=== PATIENT | male | born 1975 | race Caucasian/White ===

== ENCOUNTER 2025-05-04 09:48 | Outpatient (AMB) | payer OTHER, SELFPAY ==
--- NOTE | 2025-05-04 10:00 | A.OFFVIS_ITS ---
Vital Signs 05/04/25 10:19 Height 5 ft 7 in Weight 205 lb BMI 32.1 Handedness Right Intake Visit Reasons: WC DOI 04/24/25, closed fx of RT Tibial plateau Intake Note: Paul is a 49 year old male who presents today for a fracture care appointment for his right Tibial plateau fx, DOI 04/24/25. Patient reports he was removing a curb stone from the ground until when he pulled back he lost balance and the curb piece hit his knee. He states that he fell back and landed on his right elbow. Patient notices his pain is coming in his elbow and also his knee is in constant pain. Allergies NSAIDS (Non-Steroidal Anti-Inflamma Adverse Reaction (Verified 05/04/25 10:14) one kidney HPI HPI WC DOI 04/24/25, closed fx of RT Tibial plateau: Details: Mr. Partida is a 49-year-old male with a past medical history significant for nephrectomy and cardiac ablation for atrial fibrillation. He is not taking any blood thinners at this time. On 04/24/2025 the patient was at work when a large piece of [place] it hit the right lower extremity. After the injury, the patient was unable to stand and had immense pain in the right lower extremity. He presented to a local emergency room where x-rays and a CT scan were obtained and he was found to have a right tibial plateau fracture. He is placed in a long posterior splint and instructed to follow up with orthopedics outpatient for further evaluation and treatment. Additionally, the patient reports at today's visit that he is having right elbow pain. This was not evaluated in the emergency department as he was not complaining of pain at that time. COUNT INCLUDES THE [facility] Surgical History (Updated 05/04/25 @ 10:18 by Kenrick Stuart) History of nephrectomy History of cardiac ablation for atrial fibrillation Social History (Updated 05/04/25 @ 10:19 by Kenrick Stuart) Alcohol intake: never Patient Tobacco Use Status: Never used Tobacco Current occupational status: employed 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 construction Review of Systems Const All systems reviewed & are unremarkable except as noted in HPI and below Physical Exam Vital Signs: BMI result Body Mass Index 32.1 Const General: cooperative, healthy appearing and no acute distress Resp Effort & Inspection: normal respiratory effort and able to speak in complete sentences Extrem Other: Right lower extremity compartments are soft and compressible. Ecchymosis and hematoma noted over the anterior lateral aspect as well as the anterior medial aspect of the anterior tibia. Sensation is intact. Skin is intact with no abrasions or open wounds. Able to dorsiflex and plantar flex. Right elbow pain along the lateral epicondyle. Tenderness to palpation lateral epicondyle. 5/5 strength with resisted supination and pronation with pain at the lateral epicondyle. NVI. Assessment & Plan Assessment & Plan (1) Fracture of right tibial plateau: Code(s): S82.141A - Displaced bicondylar fracture of right tibia, initial encounter for closed fracture Category: Medical Plan Mr. Partida is a 49-year-old male with a past medical history significant for nephrectomy and cardiac ablation for atrial fibrillation. He is not taking any blood thinners at this time. On 04/24/2025 the patient was at work when a large piece of [place] it hit the right lower extremity. After the injury, the patient was unable to stand and had immense pain in the right lower extremity. He presented to a local emergency room where x-rays and a CT scan were obtained and he was found to have a right tibial plateau fracture. He is placed in a long posterior splint and instructed to follow up with orthopedics outpatient for further evaluation and treatment. Additionally, the patient reports at today's visit that he is having right elbow pain. This was not evaluated in the emergency department as he was not complaining of pain at that time. X-rays were obtained of the right elbow and negative for any acute fracture or dislocation. Recommendations would include gentle range of motion and ice. In regards to the right tibial plateau fracture, Dr. Arevalo and I discussed in detail the procedure and what to expect pre and post operatively. We discussed the risks, benefits and alternatives to the surgery as well as the rehabilitation course. The risks; which include, but are not limited to infection, bleeding, nerve injury, ongoing pain, swelling, and stiffness, perioperative risk of injury to bones and soft tissues, and blood clots. I?ve answered all questions and with their understanding they have consented to move forward with right distal tibia ORIF with Dr. Arevalo. While in the office today, I sent a refill of oxycodone 5 mg p.o. q.4-6 hours PRN pain for 7 days # 42 as well as methocarbamol 750 mg p.o. b.i.d. PRN pain # 14. Additionally, the patient has had to obtain multiple DME equipment to assist with ambulation. The equipment that they have obtained is a wheelchair, wheelchair attachment for leg lifts, a raised toilet seat and a power lift recliner. Prescriptions were provided to the patient for this DME equipment to be submitted to [facility] for reimbursement. X-rays of the right knee which were obtained while in the office today and were reviewed by me, Sonya Garcia PA-C, revealed depressed right tibial plateau fracture. CT scan right knee obtained on 04-24-25 revealed displaced right tibial plateau fracture. Orders: Orders XR elbow RT min 3V Today M25.529 - Pain in unspecified elbow Medications: New [Raise Toliet Seat] As directed 1 ea 0RF Rt tibial plateau fracture [Power Lift Recliner] As directed 1 ea 0RF Right tibial plateau fracture oxycodone Partial Fill upon patient request. 5 mg PO Q4-6H PRN 42 tabs 0RF pain 7 days [Wheel Chair] As directed 1 ea 0RF Right tibial plateau fracture [Wheel Chair Leg Lifts] As directed 1 ea 0RF methocarbamol 750 mg PO BID 14 tabs 0RF muscle spasm 7 days Coding Level of Care Code New Pt Level 4 (13005) Diagnoses Fracture of right tibial plateau S82.141A
--- OUTSIDE RECORDS SUMMARY | 2025-05-04 10:11 | XMS_ITS | Continuity of Care Document ---
Author Organization [facility] [address] [place] [address] Phone [phone] Care Team Providers Care Printing Machinist Name Role Phone Cricket Nevarez M.D. Care Team Information Rece iver [phone] Problems Active Problems Provider Date Hyperlipidemia Jonathan Perkins M.D. Onset: 0 12/03/2022 Atrial fibrillation Jonathan Perkins M.D. Onse t: 12/03/2022 Hyperthyroidism Jonathan Perkins M.D. Onset: 0 12/03/2022 Social History Type Date Description Comments Sex Male Sex Unknown ETOH Use Rarely consumes alcohol Tobacco Use Start: Unknown End: Unknown Patient is a former smoker Allergies and adverse reactions Active Allergies Criticality Reaction Severity Comments Date NSAIDS Unable to assess criticality 12/03/2022 Medications Description No Active Medications Vital Signs Date Vital Result Comment 12/03/2022 2:50pm BP Systolic 118 mmHg BP Diastolic 76 mmHg Heart Rate 72 /min Height 67 inches 5'7 Weight 210.00 lb BMI (Body Mass Index) 32.9 kg/m2 Results Test Acquired Date Facility Test Result H/L Range N ote TSH With Reflex To FT4 08/28/2023 [facility] TSH With Reflex To FT4 Duplicate Order TSH With Reflex To FT4 12/05/2022 [facility] TSH With Reflex To FT4 <pending> TSH 12/03/2022 [facility] TSH 3.84 uIU/mL (0.4-4.2) Free T4 12/03/2022 [facility] Free T4 0.99 ng/dL (0.70-1.80 ) Free T3 12/03/2022 [facility] Free T3 3.4 pg/mL (2.3-5.0) Medical Devices Description No Information Available Encounters Type Date Location Provider Dx Diagnosis Office Visit 12/03/2022 2:45p Main Office Jonathan Perkins M.D. E05.90 Thyrotoxicosis, unsp without thyrotoxic crisis or storm Assessments Date Code Description Provider 12/05/2022 E05.90 Thyrotoxicosis, unspecified without thyrotoxic crisis or storm Jonathan Perkins M.D. 12/03/2022 E05.90 Thyrotoxicosis, unspecified without thyrotoxic crisis or storm Jonathan Perknis M.D. Plan of Treatment 12/03/2022 - Jonathan Perkins M.D.* E05.90 Thyrotoxicosis, unspecified without thyrotoxic crisis or storm * Functional Status Description No Information Available Mental Status Description No Information Available Referrals Description No Information Available
[2025-05-04 10:19] VITALS: BMI 32.1
== END 2025-05-04 11:41 | disposition home or self-care (01) ==
PROVIDERS: PCP Internal Medicine; Visit Provider Physician Assistant
DX: S82.141A Displaced bicondylar fracture of right tibia, initial encounter for closed fracture (principal)
CPT/HCPCS: 99204

== ENCOUNTER → 2025-05-04 09:49 | Outpatient (BNV) | payer OTHER, SELFPAY | PROVIDERS: Visit Provider Radiology Diagnostic Radiology | DX: M25.521 Pain in right elbow (principal); S82.141A Displaced bicondylar fracture of right tibia, initial encounter for closed fracture; M25.061 Hemarthrosis, right knee | CPT/HCPCS: 73080; 73560 ==

== ENCOUNTER 2025-05-04 10:50 | Outpatient (REF) | payer OTHER, SELFPAY ==
--- NOTE | ~2025-05-04 | XR_ITS ---
EXAMINATION: XR ELBOW, RIGHT CLINICAL INFORMATION: M25.529 - Pain in unspecified elbow COMPARISON: None available. TECHNIQUE: AP, lateral, and oblique views of the right elbow. FINDINGS: There is no joint effusion. No degenerative changes are present. No fracture line is evident. XR/XR elbow RT min 3V IMPRESSION: Unremarkable right elbow. Electronically signed by: Greg Sheppard MD 05/04/2025 11:59 AM EDT
--- NOTE | ~2025-05-04 | XR_ITS ---
EXAMINATION: XR KNEE, RIGHT CLINICAL INFORMATION: M25.569 - Pain in unspecified knee COMPARISON: None available. TECHNIQUE: AP and lateral views of the right knee. FINDINGS: There is a vertically oriented fracture line in the lateral tibial plateau that extends to the articular surface near the base of the tibial spines and extends down to the metaphysis. There is lipohemarthrosis. No other abnormalities are evident. XR/XR knee RT 2V IMPRESSION: Acute intra-articular lateral tibial plateau fracture with minimal gap at the articular surface. Lipohemarthrosis. Electronically signed by: Greg Sheppard MD 05/04/2025 10:23 AM EDT
== END 2025-05-04 10:51 | disposition home or self-care (01) ==
LOC: HO.HOSX 10:50
PROVIDERS: Visit Provider Physician Assistant
DX: S82.141A Displaced bicondylar fracture of right tibia, initial encounter for closed fracture (principal); M25.521 Pain in right elbow; W18.30XA Fall on same level, unspecified, initial encounter; Z79.899 Other long term (current) drug therapy
CPT/HCPCS: 73080; 73560; 99202

== ENCOUNTER 2025-05-10 12:37 | Day surgery (SDC) | payer OTHER, SELFPAY ==
[2025-05-09 11:38] VITALS: BMI 32.1
--- NOTE | 2025-05-09 11:48 | HO.ANESPROP2 ---
Documented by User: Sheba Stoddard NP 05/09/25 15:38 HPI - Anesthesia Eval Consult details Narrative: 49 yr old male for right tibia ORIF AARTI: on CPAP H/O nephrectomy (kidney donor), creat 1.49, normal electrolytes, normal CBC on labs 10/2024 H/O cardiac ablation for afib, no longer seeing cards per PCP note PMFSH Active Problems Active Problems: All Active Problems Fracture of right tibial plateau (Acute) Past Medical History Medical History SVT (supraventricular tachycardia) Back pain AARTI on CPAP Surgical History Surgical History History of surgery Status post LASIK surgery of both eyes History of nephrectomy (10/04/15) History of cardiac ablation for atrial fibrillation Social History Social History Household Members: Family Housing: House Are you a primary animal daycare provider to a significant other at home: No Do you presently have visiting nurse or other home services: No Alcohol intake: never Patient Tobacco Use Status: Never used Tobacco Use of substances other than those prescribed or required for medical reasons: No Are you DNR?: No Advance Directives: No Advance Directives Information Provided: Yes Advance Directives on File: No Poor oral hygiene: No Current occupational status: employed 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 [employer] Meds Allergies Allergy/AdvReac Type Severity Reaction Status Date / Time NSAIDS (Non-Steroidal AdvReac one kidney Verified 05/04/25 10:14 Anti-Inflamma Home Medications ?Medication ?Instructions ?Recorded ?Confirmed ?Last Taken ?Type acetaminophen 500 mg capsule 1,000 mg PO Q6H PRN Pain 05/04/25 05/09/25 Unknown History oxycodone 5 mg capsule 5 mg PO QID PRN Pain 05/04/25 05/09/25 05/10/25 09:30 History Exam Height,Weight and Vital Signs: Height 5 ft 7 in Weight 92.986 kg Narrative Narrative: EKG 10/2024 NSR, rate 65, no ST-T wave changes Documented by User: Madelin Mathis MD 05/10/25 14:05 PMFSH Past Medical History Medical History SVT (supraventricular tachycardia) Back pain AARTI on CPAP Surgical History Surgical History History of surgery Status post LASIK surgery of both eyes History of nephrectomy (10/04/15) History of cardiac ablation for atrial fibrillation History of Problems with Anesthesia: No Social History Social History Household Members: Family Housing: House Are you a primary animal daycare provider to a significant other at home: No Do you presently have visiting nurse or other home services: No Alcohol intake: never Patient Tobacco Use Status: Never used Tobacco Use of substances other than those prescribed or required for medical reasons: No Are you DNR?: No Advance Directives: No Advance Directives Information Provided: Yes Advance Directives on File: No Poor oral hygiene: No Current occupational status: employed 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 construction Meds Allergies Allergy/AdvReac Type Severity Reaction Status Date / Time NSAIDS (Non-Steroidal AdvReac one kidney Verified 05/04/25 10:14 Anti-Inflamma Home Medications ?Medication ?Instructions ?Recorded ?Confirmed ?Last Taken ?Type acetaminophen 500 mg capsule 1,000 mg PO Q6H PRN Pain 05/04/25 05/09/25 Unknown History oxycodone 5 mg capsule 5 mg PO QID PRN Pain 05/04/25 05/09/25 05/10/25 09:30 History Exam Airway Mallampati Class: III TM Dist: >3cm Neck ROM: Full Loose/Missing/Broken Teeth: No Heart: RRR Lungs: CTA Assessment and Plan Assessment Anesthesia Assessment: Anesthesia Plan Discussed and Chart Reviewed Final Anesthetic Review History of Problems with Anesthesia: No NPO: Yes ASA Class: III Final Preanesthetic Review: Meds/Allgs Chart Reviewed, Consent Obtained/Reviewed and Anes Risks/Benef Reviewed Patient Risk: Intermediate Procedure Risk: Low Anesthetic Plan Anesthetic Plan: GA Disposition: Standard PACU
[2025-05-10] VITALS (11 sets, daily range): BP systolic 113–138; BP diastolic 74–89; PULSE 74–99; RESP 16–24; TEMP 36.2–36.9; O2SAT 94–97; BMI 32.7
--- NOTE | ~2025-05-10 | FL_ITS ---
EXAMINATION: FL GUIDANCE ONLY HISTORY: right tibia fracture COMPARISON: Correlation is made with plain films of the right knee dated 05/04/2025. TECHNIQUE: Fluoroscopy time: 1.3 minutes. Cumulative Dose: 6.65 mGy. DAP: 0.115 mGym2 Images: 2. FINDINGS: AP and lateral fluoroscopic spot films of the right knee demonstrate internal fixation of the previously seen fracture of the lateral tibial plateau with a sideplate and multiple orthopedic screws. FL/FL guidance in OR IMPRESSION: Fluoroscopy during procedure. Please see procedure report for additional information. Electronically signed by: Jairo Kaplan MD 05/11/2025 07:02 AM EDT
--- NOTE | 2025-05-10 13:12 | MHC.SHP ---
Pre-Procedural Eval Section A - 24 Hr Update-Section A only Date of Service: 05/10/25 The patient is an INPATIENT: No Changes since office visit: No Cold of Flu in the past 2 weeks, No New Medical Problems, No Changes in Medication and No Patient answered all questions The patient has been examined within 24 hours of the surgical procedure. The History & Physical has been completed within 30 days and I have reviewed it.: Yes Section B - Complete if H&P > 30 days Chief Complaint: Displaced fracture of lateral condyle of right Allergies: Allergies Allergy/AdvReac Type Severity Reaction Status Date / Time NSAIDS (Non-Steroidal AdvReac one kidney Verified 05/04/25 10:14 Anti-Inflamma Plan I have reviewed the history and physical and performed a pertinent physical examination on my patient. No changes have occurred unless specified. Time Spent With Patient Time: Total time managing care of this patient today ____ minutes.
[2025-05-10] MEDS: Lactated Ringers 1,000 ML 100 ML IVCONT ×3 (13:58→18:18)
--- NOTE | 2025-05-10 16:38 | PM.OP ---
Brief Operative Note Date of Service: 05/10/25 Pre-op diagnosis: right tibial plateau fracture Post-op diagnosis: same Procedure: ORIF right tibial plateau fracture Implants: Sandee Pangea 3 hole lateral tibial plateau locking plate Surgeon: Gerard Arevalo MD Anesthesia: GETA and regional Was an Level Designer used for this Procedure?: Yes Level Designer: Sonya Garcia Estimated blood loss (mL): 150 IV fluids (mL): 1,500 Pathology: none sent Condition: stable Disposition: PACU
[2025-05-10] MEDS: 0.9 % Sodium Chloride Flush 3 ML SYRINGE IVFLUSH ×2 (18:18→23:50)
--- NOTE | 2025-05-10 19:15 | HO.PM.IMCN ---
History of Present Illness Data of Consult Service Date: 05/10/25 Requesting physician: Gerard Arevalo Primary Care Provider: Cricket Nevarez DO, MD HPI Reason for consult: Medical management Patient is a 49-year-old male with past medical history AARTI on CPAP, SVT, AFib resolved after ablation (2009) currently not on anticoagulation or medications, LASIK surgery both eyes, left nephrectomy for kidney donation - 2014 (creatinine baseline runs 1.2-1.4 - patient does not currently follow with a gas examiner), recent work-related injury involving displaced closed fracture of the tibia is being seen status post surgical repair for consultation for medical management. Patient currently reporting pain in right lower extremity. Nursing at bedside and Orthopedics will be checking in at 20:00 to evaluate patient's status. Patient denies any other medical concerns at this time. Patient takes methocarbamol only as needed has a muscle relaxer. Patient currently denies any chest pain, shortness of breath at rest, abdominal pain, nausea or vomiting. Patient is not reporting any headaches or visual changes. Right lower extremity immobilized and elevated. Right foot is warm with palpable pulses and cap refill is less than 2 seconds. Review of Systems Review of Systems: Patient currently denies any chest pain, shortness of breath at rest, abdominal pain, nausea or vomiting. Patient denies any issues with memory status post anesthesia. Patient is not having any headaches or visual changes. Patient is reporting pain in the right lower extremity status post surgical repair of right tibia fracture. Yes all other systems are reviewed and are negative [facility] Medical History Afib SVT (supraventricular tachycardia) Back pain AARTI on CPAP Cognitive capacity: Alert and orientated x3 Functional capacity: independent ambulation (Prior to surgery) Surgical History History of surgery Status post LASIK surgery of both eyes History of nephrectomy (10/04/15) History of cardiac ablation for atrial fibrillation Social History Household Members: Spouse Housing: House Are you a primary intensive care unit nurse to a significant other at home: No Do you presently have visiting nurse or other home services: No Alcohol intake: never Patient Tobacco Use Status: Never used Tobacco Use of substances other than those prescribed or required for medical reasons: No Have you been hit, kicked, punched, or otherwise hurt by someone within the past year? If so, by whom?: No Do you feel safe in your current relationship?: No Is there a partner from a previous relationship who is making you feel unsafe now?: No Are you made to feel afraid or neglected: No Are you DNR?: No Advance Directives: No Advance Directives Information Provided: Yes Advance Directives on File: No Do you have a plan to hurt others: No Plan Recently lost weight without trying: No Eating poorly because of decreased appetite: No Nutrition Risks: No Nutritional Risk Poor oral hygiene: No Current occupational status: employed 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 construction Ebola Risk: Travel/Contact With Anyone From Affected Area/s: No Has Patient Experienced Ebola Symptoms: No Meds Allergies Allergy/AdvReac Type Severity Reaction Status Date / Time NSAIDS (Non-Steroidal AdvReac one kidney Verified 05/04/25 10:14 Anti-Inflamma Active Medications: Current Medications Acetaminophen (Acetaminophen 325 Mg Tablet) 650 mg PO Q6H PRN PRN Reason: Pain, Mild 1-3,fever,headache Aspirin (Aspirin 325 Mg Tablet) 325 mg PO BID JOHNATHAN Calcium Carbonate (Calcium Carbonate 750 Mg Tab.Chew) 750 mg PO Q4H PRN PRN Reason: Heartburn Celecoxib (Celecoxib 200 Mg Capsule) 200 mg PO BID JOHNATHAN Docusate Sodium (Docusate Sodium 100 Mg Capsule) 100 mg PO BID COUNTS INCLUDE 234 BEDS AT THE [facility] Hydromorphone HCl (Hydromorphone Hcl 0.5 Mg/0.5 Ml Syringe) 0.5 mg IVPUSH Q4H PRN; Protocol PRN Reason: Pain, Severe (Pain Scale 7-10) Last Admin: 05/10/25 18:32 Dose: 0.5 mg Lactated Ringer's (Lr) 1,000 mls @ 100 mls/hr IVCONT .Q10H COUNTS INCLUDE 234 BEDS AT THE [facility] Last Admin: 05/10/25 18:18 Dose: 100 mls/hr Cefazolin Sodium/Dextrose (Ancef) 2 gm in 50 mls @ 100 mls/hr IV POSTOP@2000 COUNTS INCLUDE 234 BEDS AT THE [facility] Stop: 05/10/25 20:29 Magnesium Hydroxide (Milk Of Magnesia 30 Ml Oral.Susp) 30 ml PO DAILY PRN PRN Reason: Constipation Melatonin (Melatonin 3 Mg Tablet) 6 mg PO BEDTIME PRN PRN Reason: Insomnia Methocarbamol (Methocarbamol 750 Mg Tablet) 750 mg PO BID COUNTS INCLUDE 234 BEDS AT THE [facility] Ondansetron HCl (Ondansetron Hcl 4 Mg/2 Ml Vial) 4 mg IVPUSH Q8H PRN PRN Reason: Nausea and Vomiting Oxycodone HCl (Oxycodone Hcl Immed Release 5 Mg Tablet) 5 mg PO Q4H PRN PRN Reason: Pain, Moderate(Pain Scale 4-6) Oxycodone HCl (Oxycodone Hcl Er 10 Mg Tab.Er.12h) 10 mg PO BID COUNTS INCLUDE 234 BEDS AT THE [facility] Sodium Chloride (0.9 % Sodium Chloride Flush 3 Ml Syringe) 3 ml IVFLUSH QSHIFT COUNTS INCLUDE 234 BEDS AT THE [facility] Last Admin: 05/10/25 18:18 Dose: 3 ml Home Medications ?Medication ?Instructions ?Recorded ?Confirmed ?Last Taken ?Type acetaminophen 500 mg capsule 1,000 mg PO Q6H PRN Pain 05/04/25 05/09/25 Unknown History oxycodone 5 mg capsule 5 mg PO QID PRN Pain 05/04/25 05/09/25 05/10/25 09:30 History Physical Exam Vital Signs and Narrative: Vital Signs: Last Vital Signs Temp 97.2 F 05/10/25 17:34 Pulse 97 05/10/25 17:34 Resp 20 05/10/25 17:34 BP 136/87 05/10/25 17:34 Pulse Ox 94 05/10/25 17:34 O2 Del Method Nasal Cannula 05/10/25 17:34 O2 Flow Rate 2 05/10/25 17:34 BMI result Body Mass Index 32.7 Alert and orientated X3, able to give good history. Spouse also present and helped with providing history as patient is experiencing pain status post surgery. Neuro: CN II-X11 intact, no deficits, visual acuity intact EYES: PERRLA, EOM intact, sclerae nonicteric ENT: hearing intact, no issues with swallowing, uvula midline, lips moist, nares patent no epistaxis Cardiac: S1 S2 RRR, no murmur, no JVD, no edema in Lower ext Pulmonary: lungs clear to auscultation B Abdominal: BS active in all 4 quadrants, no guarding, tenderness, rebounding MSK: strength 5/5 upper and L lower extremities, unable to assess strength in the right lower extremity : no CVA tenderness no bladder distension Extremities: no edema in lower extremities, PT and DP pulses palpable +2, right foot warm to the touch pulses palpable cap refill less than 2 seconds Psych: mood anxious secondary to pain, judgement and insight good Skin: Surgical incision right leg covered with the immobilizer, dry and intact Assessment and Plan (1) Fracture of right tibial plateau: Qualifiers: Encounter type: initial encounter Fracture type: closed Qualified Code(s): S82.141A - Displaced bicondylar fracture of right tibia, initial encounter for closed fracture Status: Acute Plan Patient is a 49-year-old male with past medical history AARTI on CPAP, SVT, AFib resolved after ablation (2009) currently not on anticoagulation or medications, LASIK surgery both eyes, left nephrectomy for kidney donation - 2014 (creatinine baseline runs 1.2-1.4 - patient does not currently follow with a gas examiner), recent work-related injury involving displaced closed fracture of the tibia is being seen status post surgical repair for consultation for medical management. Status post right femur repair Plan and pain management per Orthopedics Discharge plan per Orthopedics as well AARTI on CPAP CPAP ordered for HS History of AFib resolved after ablation 2009/ remote history SVT No EKG found in patient's chart currently Recommend EKG prior to discharge to ensure rhythm is stable Apical pulse regular, no murmur on exam History of left nephrectomy for kidney donation 2014 Per patient's spouse patient's creatinine runs 1.2-1.4 Recommend a.m. labs to ensure renal function and electrolytes are stable status post surgery Monitor I's and O's Avoid nephrotoxic meds Patient states he does not currently follow with a gas examiner DVT prophylaxis: Per Orthopedics Hospitalist group will sign off at this time as patient has no current acute medical issues. We appreciate this consultation and please reach out if you have any questions or concerns regarding this patient's medical care.
[2025-05-10] MEDS: oxyCODONE HCl ER 10 MG TAB.ER.12H PO (20:08)
[2025-05-10] MEDS: oxyCODONE HCl Immed Release 5 MG TABLET PO (20:09)
[2025-05-11] VITALS (10 sets, daily range): BP systolic 114–129; BP diastolic 62–76; PULSE 69–85; RESP 16–18; TEMP 36.2–36.9; O2SAT 93–95
[2025-05-11] MEDS: oxyCODONE HCl Immed Release 5 MG TABLET PO ×5 (02:11→22:05)
[2025-05-11] MEDS: Lactated Ringers 1,000 ML 100 ML IVCONT ×2 (03:47→20:06)
[2025-05-11 06:33] LABS: MANUAL DIFF FLAG NO
[2025-05-11 06:36] LABS: Hematocrit 37.3 % (42.0-52.0); Hemoglobin 13.0 g/dl (14.0-18.0); Imm Gran Abs Auto 0.03 X10*3/uL (0.00-0.03); Imm Gran Pct Auto 0.3 % (0.0-0.4); Lymphocytes Absolute Auto 1.2 X10*3/uL (1.2-4.9); Mean Corpuscular HGB Conc 34.9 g/dl (31.0-36.0); Mean Corpuscular Hemoglobin 31.0 pg (27.0-33.0); Mean Corpuscular Volume 89.0 fL (80.0-98.0); NRBC Abs Auto 0.000 X10*3/uL (0.0-0.012); NRBC Pct Auto 0.0 /100WBC (0.0-0.2); Platelet Count 247 X10*3/uL (160-400); Red Blood Count 4.19 X10*6/uL (4.60-5.80); White Blood Count 11.5 X10*3/uL (4.8-10.8)
[2025-05-11 06:49] LABS: Anion Gap 15 (12-20); Blood Urea Nitrogen 22 mg/dL (9-16); Calcium 8.7 mg/dL (8.4-10.2); Carbon Dioxide 21 mmol/L (22-29); Chloride 107 mmol/L (96-108); Creatinine Clr Calc Pharmacy 78.6; Estimated Glomerular Filt Rate > 60; Potassium 4.7 mmol/L (3.3-5.1); Sodium 138 mmol/L (135-145)
[2025-05-11] MEDS: oxyCODONE HCl ER 10 MG TAB.ER.12H PO ×2 (07:28→20:05)
--- NOTE | 2025-05-11 08:41 | HO.POSTANES ---
Post Anesthesia Evaluation Post Anesthesia Evaluation Date of Service: 05/11/25 Vital Signs: Vital Signs Temp Pulse Resp BP Pulse Ox O2 Del Method O2 Flow Rate 05/11/25 08:00 97.7 F 74 18 129/74 94 Nasal Cannula 1 05/11/25 03:49 97.2 F 80 18 126/72 93 Nasal Cannula 1 05/11/25 03:11 16 05/11/25 02:35 16 05/11/25 00:53 18 05/11/25 00:18 16 05/10/25 23:49 97.5 F 86 18 130/79 94 Nasal Cannula 2 05/10/25 21:09 16 Anesthesia: General Mental Status: Awake Pain Control: Satisfactory Nausea/Vomiting: None Hydration: Adequate Anesthesia-Related Issues: No Anes. Related Issues
--- NOTE | 2025-05-11 11:43 | PM.PNORT ---
Subjective Subjective Date of Service: 05/11/25 Interval history: Postop day 1 status post right tibial plateau ORIF Patient resting in bed this morning Right lower extremity elevated on 2 pillows Pain fairly well managed, improved dramatically from yesterday Patient report pain is currently at a 5 to 6/10, improved from 07/28 yesterday No other acute events overnight No other acute complaints or concerns at this time Physical Exam Vital Signs: Vital Signs: Last Vital Signs Temp 97.7 F 05/11/25 08:00 Pulse 74 05/11/25 08:00 Resp 18 05/11/25 08:00 BP 129/74 05/11/25 08:00 Pulse Ox 94 05/11/25 08:00 O2 Del Method Nasal Cannula 05/11/25 08:00 O2 Flow Rate 1 05/11/25 08:00 BMI result Body Mass Index 32.7 Extrem: Other: Dressing on right knee clean, dry, intact ACL brace in place No evidence of surrounding erythema, ecchymosis No evidence of infection Patient is able to flex and extend the digits of the left foot without difficulty Compartments soft, nontender Distal sensation intact Capillary refill brisk Procedures Date of Service Date of Service: 05/11/25 Progress Note: A&P Assessment and plan (1) Fracture of right tibial plateau: Status: Acute Plan 1. Status post right tibial plateau ORIF DOS 05/10/2025 Continue pain management Continue with strict elevation of the right lower extremity Continue aspirin for DVT prophylaxis PT eval pending Dispo planning-PT eval, pain management, clearance Time Spent With Patient Time: Total time managing care of this patient today ____ minutes. Quality Stroke Does the patient have a stroke diagnosis?: No VTE Prior VTE?: No VTE Risk Level:: Surgical - high VTE Device Contraindication: N/A - Device Ordered VTE Drug Contraindication: N/A - Med Ordered
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
[2025-05-12] MEDS: oxyCODONE HCl Immed Release 5 MG TABLET PO ×3 (02:18→07:11)
[2025-05-12 03:28] VITALS: BP 137/87; PULSE 76; RESP 20; TEMP 36.9; O2SAT 95
[2025-05-12] MEDS: Lactated Ringers 1,000 ML 100 ML IVCONT (03:40)
--- NOTE | 2025-05-12 03:42 | MHC.PIE ---
p; pt c/o pain 04/27, note; prn oxy 5 mg q4 given at 0218 with no change in pain. pt requesting prn tylenol and extra oxy for pain. note; prn tylenol on hold at this time. note; pt refusing iv dilaudid for pain for pt ? dc this morning. i; dr guerra notified. ok to give early dose oxy e; early dose oxy 5 mg given, ice pack given. will cont to monitor
[2025-05-12 06:26] LABS: MANUAL DIFF FLAG NO
[2025-05-12 06:32] LABS: Hematocrit 32.9 % (42.0-52.0); Hemoglobin 11.2 g/dl (14.0-18.0); Imm Gran Abs Auto 0.03 X10*3/uL (0.00-0.03); Imm Gran Pct Auto 0.3 % (0.0-0.4); Lymphocytes Absolute Auto 2.8 X10*3/uL (1.2-4.9); Mean Corpuscular HGB Conc 34.0 g/dl (31.0-36.0); Mean Corpuscular Hemoglobin 30.7 pg (27.0-33.0); Mean Corpuscular Volume 90.1 fL (80.0-98.0); NRBC Abs Auto 0.000 X10*3/uL (0.0-0.012); NRBC Pct Auto 0.0 /100WBC (0.0-0.2); Platelet Count 192 X10*3/uL (160-400); Red Blood Count 3.65 X10*6/uL (4.60-5.80); White Blood Count 9.0 X10*3/uL (4.8-10.8)
[2025-05-12 06:49] LABS: Anion Gap 10 (12-20); Blood Urea Nitrogen 21 mg/dL (9-16); Calcium 8.1 mg/dL (8.4-10.2); Carbon Dioxide 25 mmol/L (22-29); Chloride 110 mmol/L (96-108); Creatinine Clr Calc Pharmacy 83.3; Estimated Glomerular Filt Rate > 60; Potassium 3.9 mmol/L (3.3-5.1); Sodium 141 mmol/L (135-145)
[2025-05-12] MEDS: oxyCODONE HCl ER 10 MG TAB.ER.12H PO (07:14)
[2025-05-12] MEDS: oxyCODONE HCl Immed Release 5 MG TABLET 10 MG PO ×3 (07:20→14:44)
[2025-05-12 08:00] VITALS: BP 139/82; PULSE 75; RESP 18; TEMP 36.3; O2SAT 18
--- NOTE | 2025-05-12 08:27 | PM.PNORT ---
Subjective Subjective Date of Service: 05/12/25 Interval history: Postop day 1 status post right tibial plateau ORIF Patient resting in bed this morning Right lower extremity elevated on 2 pillows Pain control overnight was poor, med adjustments made but patient continued to have difficulty with pain management. - Patient was trying to wean off of IV medication Patient report pain is currently 6-7/10 No other acute complaints or concerns at this time Physical Exam Vital Signs: Vital Signs: Last Vital Signs Temp 97.3 F 05/12/25 08:00 Pulse 75 05/12/25 08:00 Resp 18 05/12/25 08:00 BP 139/82 05/12/25 08:00 Pulse Ox 18 L 05/12/25 08:00 O2 Del Method Room Air 05/12/25 08:00 O2 Flow Rate 1 05/11/25 08:00 BMI result Body Mass Index 32.7 Extrem: Other: RLE: Incision site is c/d/i. Able to dorsi/plantar flex. Compartments soft and compressible. Sensation reportedly intact. Pedal pulse intact. Brace in place appropriately placed. Procedures Date of Service Date of Service: 05/12/25 Progress Note: A&P Assessment and plan (1) Fracture of right tibial plateau: Status: Acute Plan Continue pain mgmnt Begin ASA for dvt ppx begin PT for right tibal plateau fx - NWB RLE Dispo planning- PT, pain mgmnt, NWB RLE Time Spent With Patient Time: Total time managing care of this patient today ____ minutes. Quality Stroke Does the patient have a stroke diagnosis?: No VTE Prior VTE?: No VTE Risk Level:: Surgical - high VTE Device Contraindication: N/A - Device Ordered VTE Drug Contraindication: N/A - Med Ordered
--- NOTE | 2025-05-12 11:17 | MHC.CM.PN ---
Addendum entered by Mary Ann Albert RN 05/12/25 12:54: Per RN, rx walker was sent to [facility] by ortho. Addendum entered by Mary Ann Albert RN 05/12/25 12:49: Patient medically cleared for dc home self care. Per andrea PA, home PT not indicated at this time. Discussed w/ patient who verbalized understanding. Script for walker will be provided on dc. will obtain walker. Workmans comp aware of dc. Original Note: Patient not medically cleared for dc at this time d/t uncontrolled pain. CM will continue to follow.
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
[2025-05-12 12:00] VITALS: BP 131/75; PULSE 77; RESP 17; TEMP 36.6; O2SAT 94
--- NOTE | 2025-05-12 12:33 | PM.DS ---
DS: Providers Provider Date of Service: 05/12/25 Date of discharge: 05/12/25 Primary care physician: Cricket Nevarez DO, MD Consults: 05/10/25 17:19 Consult to Hospitalist Routine Comment: Consulting Provider: [facility] Hospitalists Reason For Exam: Routine medical management DS: Diagnosis Discharge Diagnosis (1) Fracture of right tibial plateau: Status: Acute DS: Summary Hospital Course Hospital Course: The patient underwent a successful right tibial plateau ORIF, they were transferred to PACU and then to the floor to recover. During their stay, their vitals were stable, afebrile at 97.8. Labs were unremarkable, H/H 11.2/32.9. POD 1 they were started on Aspirin 325mg po bid for DVT ppx, they also received Physical Therapy services. Prior to discharge, their dressing was clean dry and intact, the brace was possitioned appropriately and the plan was to be discharged home with out patient followup. Time Attestation Discharge Coordination Time (in mins): 30 Quality: Safe Use of Opioids Does Pt have an Active Cancer Diagnosis on the Problem List?: No Quality: Stroke Does the patient have a stroke diagnosis?: No Physical Exam Vital Signs: Vital Signs: Last Vital Signs Temp 97.8 F 05/12/25 12:00 Pulse 77 05/12/25 12:00 Resp 17 05/12/25 12:00 BP 131/75 05/12/25 12:00 Pulse Ox 94 05/12/25 12:00 O2 Del Method Room Air 05/12/25 12:00 O2 Flow Rate 1 05/11/25 08:00 BMI result Body Mass Index 32.7 Extrem: Other: RLE: Incision site is c/d/i. Able to dorsi/plantar flex. Compartments soft and compressible. Sensation reportedly intact. Pedal pulse intact. Brace in place appropriately placed. DS: Data Data Completed and Pending Labs on day of discharge: Laboratory Results - last 24 hr 05/12/25 05:31 WBC 9.0 RBC 3.65 L Hgb 11.2 L Hct 32.9 L MCV 90.1 MCH 30.7 MCHC 34.0 RDW 12.2 Plt Count 192 MPV 10.1 Immature Gran % (Auto) 0.3 Neut % (Auto) 57.4 Lymph % (Auto) 31.4 Tama % (Auto) 9.6 Eos % (Auto) 0.9 Baso % (Auto) 0.4 Lymph # (Auto) 2.8 [place]ama # (Auto) 0.9 Eos # (Auto) 0.1 Baso # (Auto) 0.0 Abs Immat Gran (auto) 0.03 Absolute Neuts (auto) 5.1 Absolute Nucleated RBC 0.000 Nucleated RBC % (auto) 0.0 Sodium 141 Potassium 3.9 Chloride 110 H Carbon Dioxide 25 Anion Gap 10 L BUN 21 H Creatinine 1.15 Estim Creat Clear Calc 83.3 Estimated GFR > 60 Fasting Glucose 93 Calcium 8.1 L D Discharge Plan Discharge Patient Disposition: Home, Self-Care Referrals: Sonya Garcia PA-C [Physician Meter Attendant, Orthopedics] - 05/18/25 10:45 am Discharge Medications: New acetaminophen 325 mg Tablet 650 mg PO Q6H PRN (Reason: Pain, Mild 1-3,Fever,Headache) 30 Days Qty: 240 0RF aspirin 325 mg Tablet 325 mg PO BID 42 Days Qty: 84 0RF oxycodone [OxyContin] 10 mg Tablet,Oral Only,Ext.Rel.12 Hr 10 mg PO BID 4 Days Qty: 8 0RF Rx Instructions: Partial Fill upon patient request. oxycodone 10 mg tablet 10 mg PO Q4H PRN (Reason: Pain, Moderate/Severe (4-10)) 7 Days Qty: 42 0RF Rx Instructions: Partial Fill upon patient request. docusate sodium 100 mg Capsule 100 mg PO BID 30 Days Qty: 60 0RF Continued (DME) walker Misc See Rx Instructions .ROUTE .MEDSUPPLY Qty: 1 0RF Rx Instructions: Folding front wheeled walker (DME) Power Lift Recliner See Rx Instructions .ROUTE .MEDSUPPLY Qty: 1 0RF Rx Instructions: As directed (DME) Raise Toliet Seat See Rx Instructions .ROUTE .MEDSUPPLY Qty: 1 0RF Rx Instructions: As directed (DME) Wheel Chair See Rx Instructions .ROUTE .MEDSUPPLY Qty: 1 0RF Rx Instructions: As directed (DME) Wheel Chair Leg Lifts See Rx Instructions .ROUTE .MEDSUPPLY Qty: 1 0RF Rx Instructions: As directed methocarbamol 750 mg tablet 750 mg PO BID 7 Days Qty: 14 0RF Discontinued oxycodone 5 mg capsule 5 mg PO QID PRN (Reason: Pain) acetaminophen 500 mg capsule 1,000 mg PO Q6H PRN (Reason: Pain) Discharge Orders: Discharge Order (Routine); Ordered 05/12/25 Ordered By: Sonya Garcia Diet: Advance to usual diet Activity on Discharge: Use cane or walker Activity Restrictions/Additional Instructions: NWB RLW Walker to assist with ambulation Elevation on three pillows above heart level Ice 20mins on and 20mins off - Make sure you have a barrier between ice pack and skin Oxycodone 10/325mg 1 tablet by mouth every 4-6 hours as needed for pain Oxycontin 10mg 1 tablet by mouth every 12 hours Print Language: Divehi
--- NOTE | 2025-05-12 13:47 | PC.NURSE ---
patient reported poor pain control overnight, additional dose of oxycodone given and dose increased to 10mg with better effect, patient to be discharged home with script for long acting oxycontin as well as increased dose of oxycodone
== END 2025-05-12 15:03 | disposition home or self-care (01) ==
LOC: HO.SSS 12:38 → HO.S3 17:28 → HO.SSS 05-11 09:39 → HO.S3 05-11 09:49
PROVIDERS: Physician Assistant; PCP Internal Medicine; Visit Provider Orthopaedic Surgery
PROC: (CPT 27535; principal; 2025-05-10 15:40)
DX: S82.141A Displaced bicondylar fracture of right tibia, initial encounter for closed fracture (principal); M25.561 Pain in right knee; M25.521 Pain in right elbow; W20.8XXA Other cause of strike by thrown, projected or falling object, initial encounter; Y93.89 Activity, other specified; Y92.69 Other specified industrial and construction area as the place of occurrence of the external cause; Y99.0 Civilian activity done for income or pay; I48.91 Unspecified atrial fibrillation; I47.10 Supraventricular tachycardia, unspecified; Z52.4 Kidney donor; G47.33 Obstructive sleep apnea (adult) (pediatric); Z99.89 Dependence on other enabling machines and devices; Z88.6 Allergy status to analgesic agent; Z98.890 Other specified postprocedural states
CPT/HCPCS: 27535; 36415; 80048; 85025; 97116; 97162; C1713; J0131; J0690; J1100; J1171; J2003; J2250; J2405; J2704; J2795; J3010; J7120

== ENCOUNTER → 2025-05-10 12:37 | Outpatient (BNV) | payer OTHER, SELFPAY | PROVIDERS: PCP Internal Medicine; Visit Provider Orthopaedic Surgery | DX: S82.141A Displaced bicondylar fracture of right tibia, initial encounter for closed fracture (principal) | CPT/HCPCS: 27535 ==

== ENCOUNTER → 2025-05-10 12:37 | Outpatient (BNV) | payer OTHER, SELFPAY | PROVIDERS: PCP Internal Medicine; Visit Provider Nurse Practitioner Family | DX: S82.141A Displaced bicondylar fracture of right tibia, initial encounter for closed fracture (principal) | CPT/HCPCS: 99223 ==

== ENCOUNTER 2025-05-18 08:13 | Outpatient (REF) | payer OTHER, SELFPAY ==
--- NOTE | ~2025-05-18 | XR_ITS ---
EXAMINATION: XR KNEE, RIGHT CLINICAL INFORMATION: M25.569 - Pain in unspecified knee COMPARISON: May 04, 2025. TECHNIQUE: AP and lateral of the right knee. FINDINGS: Metallic plate anchor with screws through the lateral aspect of the tibial plateau and proximal diaphysis of the right tibia. There is a vertically oriented fracture involving the lateral tibial plateau extending to the proximal metaphysis without gross depression. The patella, proximal fibula and distal femur are intact. No suprapatellar bursa joint effusion. Skin phylicia along the lateral aspect of the right knee. XR/XR knee RT 2V IMPRESSION: Status post open reduction internal fixation of the lateral tibial plateau fracture. Electronically signed by: Malcom Pena MD 05/18/2025 11:01 AM EDT
--- OUTSIDE RECORDS SUMMARY | 2025-05-19 08:17 | XMS_ITS | Continuity of Care Document ---
Author Organization [facility] [address] [place] [address] Phone [phone] Care Team Providers Care Online Retailer Name Role Phone Cricket Nevarez M.D. Care Team Information Rece iver [phone] Problems Active Problems Provider Date Hyperlipidemia Jonathan [...] ote TSH With Reflex To FT4 08/28/2023 [facility] TSH With Reflex To FT4 Duplicate Order TSH With Reflex To FT4 12/05/2022 [facility] TSH With Reflex To FT4 <pending> TSH 12/03/2022 [facility] TSH 3.84 uIU/mL (0.4-4.2) Free T4 12/03/2022 [facility] Free T4 0.99 ng/dL (0.70-1.80 ) Free T3 12/03/2022 [facility] Free T3 3.4 pg/mL (2.3-5.0) [...]
== END 2025-05-18 08:14 | disposition home or self-care (01) ==
LOC: HO.HOSX 08:13
PROVIDERS: Visit Provider Physician Assistant
DX: S82.141D Displaced bicondylar fracture of right tibia, subsequent encounter for closed fracture with routine healing (principal); M25.561 Pain in right knee; R20.0 Anesthesia of skin; R20.2 Paresthesia of skin; X58.XXXD Exposure to other specified factors, subsequent encounter; Z79.899 Other long term (current) drug therapy
CPT/HCPCS: 73560; 99212

== ENCOUNTER 2025-05-18 10:41 | Outpatient (AMB) | payer OTHER, SELFPAY ==
[2025-05-18 10:42] VITALS: BMI 32.6
--- NOTE | 2025-05-18 10:42 | MHC.OFFVIS ---
Vital Signs 05/18/25 10:42 Height 5 ft 7 in Weight 208 lb BMI 32.6 Intake Visit Reasons: PO-Rt Tibial Plateau ORIF 05/10/25 NE Intake Note: Paul is a 49 year old male who presents today for a post op appointment status post right tibial plateau ORIF 05/10/[address] Arevalo. Patient reports pain medications are lasting about 4-5 hours. He has been trying to take them every 6 hours. Reports some numbness and tingling all aroun the right foot. Patient remains non-weight bearing, using a wheelchair during today's visit. Allergies NSAIDS (Non-Steroidal Anti-Inflamma Adverse Reaction (Verified 05/18/25 11:00) one kidney HPI HPI PO-Rt Tibial Plateau ORIF 05/10/25 NE: Details: Mr. Helga serna is a 49-year-old male who presents to the office today status post right tibial plateau ORIF performed on 05/10/[address] Arevalo. He was discharged from the hospital on 05/12/2025. He was placed in an ACL brace locked in extension and instructed to non weightbear on the right lower extremity. He reports pain is present but manageable. No additional concerns at this time. [facility] Medical History Afib SVT (supraventricular tachycardia) Back pain AARTI on CPAP Surgical History History of surgery Status post LASIK surgery of both eyes History of nephrectomy (10/04/15) History of cardiac ablation for atrial fibrillation Social History Household Members: Spouse Housing: House Are you a primary rn progressive care unit to a significant other at home: No Do you presently have visiting nurse or other home services: No Alcohol intake: never Patient Tobacco Use Status: Never used Tobacco service: No Current occupational status: employed 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 construction Review of Systems Const All systems reviewed & are unremarkable except as noted in HPI and below Physical Exam Vital Signs: BMI result Body Mass Index 32.6 Const General: cooperative, healthy appearing and no acute distress Resp Effort & Inspection: normal respiratory effort and able to speak in complete sentences Extrem Other: Right knee incision site is clean dry and intact. [place] intact. No surrounding erythema or drainage. No signs of infection. Able to dorsiflex and plantar flex. Sensation is intact. Pedal pulse intact. Psych Appearance: grossly normal Mental Status: mental status grossly normal Attitude: cooperative Assessment & Plan Assessment & Plan (1) Fracture of right tibial plateau: Code(s): S82.141A - Displaced bicondylar fracture of right tibia, initial encounter for closed fracture Category: Medical Qualifiers: Encounter type: initial encounter Fracture type: closed Qualified Code(s): S82.141A - Displaced bicondylar fracture of right tibia, initial encounter for closed fracture Plan Mr. Helga serna is a 49-year-old male who presents to the office today status post right tibial plateau ORIF performed on 05/10/[address] Arevalo. He was discharged from the hospital on 05/12/2025. He was placed in an ACL brace locked in extension and instructed to non weightbear on the right lower extremity. He reports pain is present but manageable. No additional concerns at this time. While in the office today, the incision site was clean dry and intact. [place] intact. No signs of infection at this time. X-rays obtained in the office today were reviewed by me, Sonya Garcia PA-C, and reveal intact orthopedic hardware with routine healing. Krista's incision site was cleaned with a ChloraPrep and dressed with an Aquacel dressing. Patient was then placed back into the ACL brace locked in extension. Again reiterated that he is nonweightbearing in which the patient has been compliant and understands. He is looking for a refill of his muscle relaxer methocarbamol 750 mg p.o. b.i.d. for spasms in his back from prior injury. This has been sent to his pharmacy for him. He will follow up on Thursday for anticipated staple removal, sooner if needed. Orders: Orders XR knee RT 2V Today M25.569 - Pain in unspecified knee Medications: Refilled methocarbamol 750 mg PO BID 14 tabs 0RF muscle spasm 7 days Coding Level of Care Code Global (03183) Diagnoses Closed fracture of right tibial plateau, initial encounter S82.141A Encounter type: initial encounter Fracture type: closed
--- OUTSIDE RECORDS SUMMARY | 2025-05-18 11:28 | XMS_ITS | Continuity of Care Document ---
Author Organization [facility] [address] [place] [address] Phone [phone] Care Team Providers Care Printer Slotter Operator Name Role Phone Cricket Nevarez M.D. Care Team Information Rece iver [phone] Problems Active Problems Provider Date Hyperlipidemia Jonathan [...] ote TSH With Reflex To FT4 08/28/2023 [facility] TSH With Reflex To FT4 Duplicate Order TSH With Reflex To FT4 12/05/2022 [facility] TSH With Reflex To FT4 <pending> TSH 12/03/2022 [facility] TSH 3.84 uIU/mL (0.4-4.2) Free T4 12/03/2022 [facility] Free T4 0.99 ng/dL (0.70-1.80 ) Free T3 12/03/2022 [facility] Free T3 3.4 pg/mL [...] thyrotoxic crisis or storm Jonathan Perkins M.D. Plan of Treatment 12/03/2022 - Jonathan Perkins M.D.* E05.90 Thyrotoxicosis, unspecified without thyrotoxic crisis or storm * Functional Status Description No Information Available Mental Status Description No Information Available Referrals Description No Information Available
== END 2025-05-18 11:30 | disposition home or self-care (01) ==
LOC: HO.HOS 10:41
PROVIDERS: PCP Internal Medicine; Visit Provider Physician Assistant
DX: S82.141A Displaced bicondylar fracture of right tibia, initial encounter for closed fracture (principal)
CPT/HCPCS: 99024

== ENCOUNTER → 2025-05-18 10:43 | Outpatient (BNV) | payer OTHER, SELFPAY | PROVIDERS: Visit Provider Radiology Diagnostic Radiology | DX: M25.561 Pain in right knee (principal) | CPT/HCPCS: 73560 ==

== ENCOUNTER 2025-05-23 13:30 | Outpatient (AMB) | payer OTHER, SELFPAY ==
--- NOTE | 2025-05-23 13:36 | A.OFFVIS_ITS ---
Intake Visit Reasons: PO-staple removal/ Rt Tibial Plateau ORIF 05/10/25 Intake Note: Paul is a 49 year old male who presents today for a post op appointment status post right tibial plateau ORIF 05/10/[address] Arevalo. Patient reports he is having mild pain but he is feeling better. Allergies NSAIDS (Non-Steroidal Anti-Inflamma Adverse Reaction (Verified 05/23/25 13:47) one kidney HPI HPI PO-staple removal/ Rt Tibial Plateau ORIF 05/10/25: Details: Mr. Partida presents to the office today accompanied by his status post right tibial plateau ORIF performed on 05/10/[address] Arevalo. Patient states overall he is doing well. He has been mobile using a walker. He has maintained in brace at all times locked in extension ambulation. He reports he still continues to have pain but has become slightly more manageable. He has been nonweightbearing as instructed. No additional complaints. [facility] Medical History Afib SVT (supraventricular tachycardia) Back pain AARTI on CPAP Surgical History History of surgery Status post LASIK surgery of both eyes History of nephrectomy (10/04/15) History of cardiac ablation for atrial fibrillation Social History Household Members: Spouse Housing: House Are you a primary child care director to a significant other at home: No Do you presently have visiting nurse or other home services: No Alcohol intake: never Patient Tobacco Use Status: Never used Tobacco service: No Current occupational status: employed 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 construction Review of Systems Const All systems reviewed & are unremarkable except as noted in HPI and below Physical Exam Const General: cooperative, healthy appearing and no acute distress Resp Effort & Inspection: normal respiratory effort and able to speak in complete sentences Extrem Other: Right knee incision site is clean dry and intact. [place] intact. No surrounding erythema or drainage. No signs of infection. Able to dorsiflex and plantar flex. Sensation is intact. Pedal pulse intact. Psych Appearance: grossly normal Mental Status: mental status grossly normal Attitude: cooperative Assessment & Plan Assessment & Plan (1) Fracture of right tibial plateau: Code(s): S82.141A - Displaced bicondylar fracture of right tibia, initial encounter for closed fracture Category: Medical Qualifiers: Encounter type: initial encounter Fracture type: closed Qualified Code(s): S82.141A - Displaced bicondylar fracture of right tibia, initial encounter for closed fracture Plan Mr. Partida presents to the office today accompanied by his status post right tibial plateau ORIF performed on 05/10/[address] Arevalo. Patient states overall he is doing well. He has been mobile using a walker. He has maintained in brace at all times locked in extension ambulation. He reports he still continues to have pain but has become slightly more manageable. He has been nonweightbearing as instructed. No additional complaints. While in the office today, phylicia were removed and Steri-Strips were applied. Patient was placed back into the ACL brace locked in extension. He will remain in the ACL brace at all times while ambulating. He may begin to shower. No tub bath at this time. Patient will remain out of work until follow up. He will follow up in 5 weeks with x-rays, sooner if needed. Coding Level of Care Code Global (68317) Diagnoses Closed fracture of right tibial plateau, initial encounter S82.141A Encounter type: initial encounter Fracture type: closed
--- OUTSIDE RECORDS SUMMARY | 2025-05-23 14:10 | XMS_ITS | Continuity of Care Document ---
Author Organization [facility] [address] [place] [address] Phone [phone] Care Team Providers Care Turkey Roll Maker Name Role Phone Cricket Nevarez M.D. Care Team Information Rece iver [phone] Problems Active Problems Provider Date Hyperlipidemia Jonathan [...] ote TSH With Reflex To FT4 08/28/2023 [facility] TSH With Reflex To FT4 Duplicate Order TSH With Reflex To FT4 12/05/2022 [facility] TSH With Reflex To FT4 <pending> TSH 12/03/2022 [facility] TSH 3.84 uIU/mL (0.4-4.2) Free T4 12/03/2022 [facility] Free T4 0.99 ng/dL (0.70-1.80 ) Free T3 12/03/2022 [facility] Free T3 3.4 pg/mL [...]
== END 2025-05-23 14:19 | disposition home or self-care (01) ==
LOC: HO.HOS 13:30
PROVIDERS: PCP Internal Medicine; Visit Provider Physician Assistant
DX: S82.141A Displaced bicondylar fracture of right tibia, initial encounter for closed fracture (principal)
CPT/HCPCS: 99024

== ENCOUNTER → 2025-05-23 13:30 | Outpatient (BNVA) | payer OTHER, SELFPAY | PROVIDERS: PCP Internal Medicine; Visit Provider Physician Assistant | DX: S82.141A Displaced bicondylar fracture of right tibia, initial encounter for closed fracture (principal); Z98.890 Other specified postprocedural states | CPT/HCPCS: 99212 ==

== ENCOUNTER 2025-06-27 08:46 | Outpatient (REF) | payer OTHER, SELFPAY ==
--- NOTE | ~2025-06-27 | XR_ITS ---
EXAMINATION: XR KNEE, RIGHT CLINICAL INFORMATION: M25.569 - Pain in unspecified knee COMPARISON: May 18, 2025 TECHNIQUE: AP bilateral standing and and lateral views of the right knee. FINDINGS: Again seen is a buttressing sideplate placed from a lateral approach across the tibial plateau fracture fixed with multiple screws. Hardware is intact. There is minimal focal lucency cephalad to the distal end of the most inferior screw within the medullary space on the frontal view. On the lateral view, there is a tract visible where screws may have been removed likely accounting for the lucency seen on the frontal view. Fracture extending into the notch side of the tibial plateau is more indistinct on the current study consistent with healing. Joint effusion is resolved. XR/XR knee RT 2V IMPRESSION: Continued healing of a tibial plateau fracture following ORIF. Interval resolution of a joint effusion. Electronically signed by: Greg Sheppard MD 06/27/2025 03:12 PM EDT
--- OUTSIDE RECORDS SUMMARY | 2025-06-28 10:14 | XMS_ITS | Continuity of Care Document ---
Author Organization [facility] [address] [place] [address] Phone [phone] Care Team Providers Care Lan/Wan Engineer Name Role Phone Cricket Nevarez M.D. Care Team Information Rece iver [phone] Problems Active Problems Provider Date Hyperlipidemia Jonathan [...] ote TSH With Reflex To FT4 08/28/2023 [facility] TSH With Reflex To FT4 Duplicate Order TSH With Reflex To FT4 12/05/2022 [facility] TSH With Reflex To FT4 <pending> TSH 12/03/2022 [facility] TSH 3.84 uIU/mL (0.4-4.2) Free T4 12/03/2022 [facility] Free T4 0.99 ng/dL (0.70-1.80 ) Free T3 12/03/2022 [facility] Free T3 3.4 pg/mL (2.3-5.0) [...]
== END 2025-06-27 08:47 | disposition home or self-care (01) ==
LOC: HO.HOSX 08:46
PROVIDERS: Visit Provider Physician Assistant
DX: S82.141A Displaced bicondylar fracture of right tibia, initial encounter for closed fracture (principal); X58.XXXA Exposure to other specified factors, initial encounter
CPT/HCPCS: 73560; 99212

== ENCOUNTER 2025-06-27 14:52 | Outpatient (AMB) | payer OTHER, SELFPAY ==
--- NOTE | 2025-06-27 15:28 | A.OFFVIS_ITS ---
Vital Signs 06/27/25 15:34 Height 5 ft 7 in Weight 208 lb BMI 32.6 Intake Visit Reasons: PO- Rt Tibial Plateau ORIF 05/10/25 w/ Xray Intake Note: Paul is a 49 year old male who presents today for a post operative appointment status post right tibial plateau ORIF done on 05/10/[address] Arevalo. He was instructed to keep the ACL brace on all day in extension. Patient reports he is doing well, having little to no pain at the moment. Allergies NSAIDS (Non-Steroidal Anti-Inflamma Adverse Reaction (Verified 05/23/25 13:47) one kidney HPI HPI PO- Rt Tibial Plateau ORIF 05/10/25 w/ Xray: Details: Mr. Partida is a 49 yo male who presents to the office today accompanied by his for routine followup s/p right tibial plateau ORIF performed on 05/10/[address] Arevalo. The patient continues to remain NWB on the RLE. He reports that his pain is well managed. He has no complaints at this time. [facility] Medical History Afib SVT (supraventricular tachycardia) Back pain AARTI on CPAP Surgical History History of surgery Status post LASIK surgery of both eyes History of nephrectomy (10/04/15) History of cardiac ablation for atrial fibrillation Social History Household Members: Spouse Housing: House Are you a primary district manager primary care sales to a significant other at home: No Do you presently have visiting nurse or other home services: No Alcohol intake: never Patient Tobacco Use Status: Never used Tobacco service: No Current occupational status: employed 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 construction Review of Systems Const All systems reviewed & are unremarkable except as noted in HPI and below Physical Exam Vital Signs: BMI result Body Mass Index 32.6 Const General: cooperative, healthy appearing and no acute distress Resp Effort & Inspection: normal respiratory effort and able to speak in complete sentences Extrem Other: Right knee incision site is c/d/i. No surrounding erythema or drainage no signs of infection. ROM 0-45 degrees. Able to dorsi/plantar flex. NVI. Psych Appearance: grossly normal Mental Status: mental status grossly normal Attitude: cooperative Assessment & Plan Assessment & Plan (1) Fracture of right tibial plateau: Code(s): S82.141A - Displaced bicondylar fracture of right tibia, initial encounter for closed fracture Category: Medical Qualifiers: Encounter type: initial encounter Fracture type: closed Qualified Code(s): S82.141A - Displaced bicondylar fracture of right tibia, initial encounter for closed fracture Plan Mr. Partida is a 49 yo male who presents to the office today accompanied by his for routine followup s/p right tibial plateau ORIF performed on 05/10/[address] Arevalo. The patient continues to remain NWB on the RLE. He reports that his pain is well managed. He has no complaints at this time. While in the office today we discussed continuation of NWB on the right lower extremity for a total of three months post operatively. The patient understands and accepts. He will remain in the ACL brace. I have also placed an order for physical therapy, he would like to attend AT in [place] as it is closer to home. Physical therapy should focus on ROM. the goal is to unlock the brace by 10 degrees each week, again, he will continue to be NWB during this process. He will follow-up in 6 weeks with x-rays, sooner if needed. x-rays of the right knee obtained in the office today were reviewed by me, Sonya Garcia PA-C, and reveal intact orthopedic hardware with routine healing. Orders: Orders PT Evaluation and Treatment 06/27/25 S82.141A - Displaced bicondylar fracture of right tibia, initial encounter for closed fracture Coding Level of Care Code Global (12015) Diagnoses Closed fracture of right tibial plateau, initial encounter S82.141A Encounter type: initial encounter Fracture type: closed
[2025-06-27 15:34] VITALS: BMI 32.6
--- OUTSIDE RECORDS SUMMARY | 2025-06-27 17:21 | XMS_ITS | Continuity of Care Document ---
Author Organization [facility] [address] [place] [address] Phone [phone] Care Team Providers Care Capacity Planning Engineer Name Role Phone Cricket Nevarez M.D. Care Team Information Rece iver [phone] Problems Active Problems Provider Date Hyperlipidemia Jonathan [...] ote TSH With Reflex To FT4 08/28/2023 [facility] TSH With Reflex To FT4 Duplicate Order TSH With Reflex To FT4 12/05/2022 [facility] TSH With Reflex To FT4 <pending> TSH 12/03/2022 [facility] TSH 3.84 uIU/mL (0.4-4.2) Free T4 12/03/2022 [facility] Free T4 0.99 ng/dL (0.70-1.80 ) Free T3 12/03/2022 [facility] Free T3 3.4 pg/mL [...]
== END 2025-06-27 16:08 | disposition home or self-care (01) ==
LOC: HO.HOS 14:53
PROVIDERS: PCP Internal Medicine; Visit Provider Physician Assistant
DX: S82.141A Displaced bicondylar fracture of right tibia, initial encounter for closed fracture (principal)
CPT/HCPCS: 99024

== ENCOUNTER → 2025-06-27 14:55 | Outpatient (BNV) | payer OTHER, SELFPAY | PROVIDERS: Visit Provider Radiology Diagnostic Radiology | DX: S82.121A Displaced fracture of lateral condyle of right tibia, initial encounter for closed fracture (principal) | CPT/HCPCS: 73560 ==

== ENCOUNTER 2025-08-08 10:11 | Outpatient (REF) | payer OTHER, SELFPAY ==
--- NOTE | ~2025-08-08 | XR_ITS ---
EXAMINATION: XR KNEE, RIGHT CLINICAL INFORMATION: M25.569 - Pain in unspecified knee COMPARISON: Previous x-ray most recent June 27 2025 TECHNIQUE: 3 views of the right knee. FINDINGS: Similar position of surgical hardware with laterally placed plate and screws in the tibial plateau and proximal metaphysis and shaft. Slight lucency adjacent to the superior aspect of the most inferior screw in the proximal tibial shaft unchanged. Rectangular shaped increased density likely representing cement in the lateral tibial plateau unchanged. Vertical lateral tibial plateau fracture no longer seen. There is severe osteopenia. This appears increased from prior exam. Normal joint spaces. No joint effusion. Soft tissues are normal. XR/XR knee RT 3V IMPRESSION: Stable post surgical changes. Severe osteopenia increased from prior exam. Electronically signed by: Madelin Elizondo MD 08/08/2025 03:25 PM EDT
== END 2025-08-08 10:12 | disposition home or self-care (01) ==
LOC: HO.HOSX 10:11
PROVIDERS: Visit Provider Physician Assistant
DX: S82.141D Displaced bicondylar fracture of right tibia, subsequent encounter for closed fracture with routine healing (principal); M25.561 Pain in right knee
CPT/HCPCS: 73562; 99212

== ENCOUNTER 2025-08-08 14:45 | Outpatient (AMB) | payer OTHER, SELFPAY ==
--- NOTE | 2025-08-08 14:54 | A.OFFVIS_ITS ---
Intake Visit Reasons: OV-Rt Tibial Plateau ORIF 05/10/25 w/ Xray Intake Note: Paul is a 49 year old male who presents today for a post operative appointment status post right tibial plateau ORIF done on 05/10/[address] Arevalo. Patient reports he is doing well. He is feeling very sore after coming out from physical therapy. Allergies NSAIDS (Non-Steroidal Anti-Inflamma Adverse Reaction (Verified 08/08/25 15:00) one kidney HPI HPI OV-Rt Tibial Plateau ORIF 05/10/25 w/ Xray: Details: Mr. Partida is a 49-year-old male who presents to the office today status post right tibial plateau ORIF performed on 05/10/[address] Arevalo. Patient has been nonweightbearing on the right lower extremity using a walker to assist with ambulation. He reports pain has been managed. No additional complaints. [facility] Medical History Afib SVT (supraventricular tachycardia) Back pain AARTI on CPAP Surgical History History of surgery Status post LASIK surgery of both eyes History of nephrectomy (10/04/15) History of cardiac ablation for atrial fibrillation Social History Household Members: Spouse Housing: House Are you a primary doggy daycare activities director to a significant other at home: No Do you presently have visiting nurse or other home services: No Alcohol intake: never Patient Tobacco Use Status: Never used Tobacco service: No Current occupational status: employed 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 construction Review of Systems Const All systems reviewed & are unremarkable except as noted in HPI and below Physical Exam Const General: cooperative, healthy appearing and no acute distress Resp Effort & Inspection: normal respiratory effort and able to speak in complete sentences Extrem Other: Right knee incision site is c/d/i. No surrounding erythema or drainage no signs of infection. ROM 0-45 degrees. Able to dorsi/plantar flex. NVI. Psych Appearance: grossly normal Mental Status: mental status grossly normal Attitude: cooperative Assessment & Plan Assessment & Plan (1) Fracture of right tibial plateau: Code(s): S82.141A - Displaced bicondylar fracture of right tibia, initial encounter for closed fracture Category: Medical Qualifiers: Encounter type: initial encounter Fracture type: closed Qualified Code(s): S82.141A - Displaced bicondylar fracture of right tibia, initial encounter for closed fracture Plan Mr. Partida is a 49-year-old male who presents to the office today status post right tibial plateau ORIF performed on 05/10/[address] Arevalo. Patient has been nonweightbearing on the right lower extremity using a walker to assist with ambulation. He reports pain has been managed. No additional complaints. While in the office today I have instructed the patient that he may begin to weightbear as tolerated in the right lower extremity. He will continue working with physical therapy on range of motion unlocking the ACL brace by 10 degrees each week until full range of motion has been achieved. Patient was also requesting a letter stating that he has orthopedic hardware in the right knee in case this is needed for travel. This has been provided to him. He will follow up in 6 weeks with repeat x-rays, sooner if needed. X-rays of the right knee which were obtained while in the office today and were reviewed by me, Sonya Garcia PA-C, revealed intact orthopedic hardware with routine healing. Orders: Orders XR knee RT 3V Today M25.569 - Pain in unspecified knee PT Evaluation and Treatment Today S82.141A - Displaced bicondylar fracture of right tibia, initial encounter for closed fracture Coding Level of Care Code Global (23348) Diagnoses Closed fracture of right tibial plateau, initial encounter S82.141A Encounter type: initial encounter Fracture type: closed
--- OUTSIDE RECORDS SUMMARY | 2025-08-08 19:50 | XMS_ITS | Continuity of Care Document ---
Author Organization [facility] [address] [place] [address] Phone [phone] Care Team Providers Care Manager Intensive Care Unit Name Role Phone Cricket Nevarez M.D. Care Team Information Rece iver [phone] Problems Active Problems Provider Date Hyperlipidemia Jonathan [...] ote TSH With Reflex To FT4 08/28/2023 [facility] TSH With Reflex To FT4 Duplicate Order TSH With Reflex To FT4 12/05/2022 [facility] TSH With Reflex To FT4 <pending> TSH 12/03/2022 [facility] TSH 3.84 uIU/mL (0.4-4.2) Free T4 12/03/2022 [facility] Free T4 0.99 ng/dL (0.70-1.80 ) Free T3 12/03/2022 [facility] Free T3 3.4 pg/mL [...]
== END 2025-08-08 15:34 | disposition home or self-care (01) ==
LOC: HO.HOS 14:46
PROVIDERS: Visit Provider Physician Assistant
DX: S82.141A Displaced bicondylar fracture of right tibia, initial encounter for closed fracture (principal)
CPT/HCPCS: 99024

== ENCOUNTER → 2025-08-08 14:47 | Outpatient (BNV) | payer OTHER, SELFPAY | PROVIDERS: Visit Provider Radiology Diagnostic Radiology | DX: M85.861 Other specified disorders of bone density and structure, right lower leg (principal) | CPT/HCPCS: 73562 ==

== ENCOUNTER 2025-09-19 | Outpatient (REF) | payer OTHER, SELFPAY ==
--- NOTE | ~2025-09-19 | XR_ITS ---
EXAMINATION: XR KNEE 3 VIEWS RIGHT HISTORY: M25.569 - Pain in unspecified knee COMPARISON: Comparison is made with the prior examination dated 08/08/2025. FINDINGS: Standing AP views of both knees and additional lateral and sunrise patellar views of the left knee are submitted. The bones are osteopenic. Again seen is internal fixation of the tibial plateau with a sideplate and multiple orthopedic screws. The fracture line is not visible. The joint spaces are preserved. The soft tissues are unremarkable. There is no joint effusion. XR/XR knee RT 3V IMPRESSION: Osteopenia. Internal fixation of the tibial plateau. The fracture is no longer visible. Electronically signed by: Jairo Kaplan MD 09/19/2025 01:28 PM EST
--- OUTSIDE RECORDS SUMMARY | 2025-11-09 11:22 | XMS_ITS | Continuity of Care Document ---
Author Organization [facility] [address] [place] [address] Phone [phone] Care Team Providers Care Weather Strip Installer Name Role Phone Cricket Nevarez M.D. Care Team Information Rece iver [phone] Problems Active Problems Provider Date Hyperlipidemia Jonathan [...] ote TSH With Reflex To FT4 08/28/2023 [facility] TSH With Reflex To FT4 Duplicate Order TSH With Reflex To FT4 12/05/2022 [facility] TSH With Reflex To FT4 <pending> TSH 12/03/2022 [facility] TSH 3.84 uIU/mL (0.4-4.2) Free T4 12/03/2022 [facility] Free T4 0.99 ng/dL (0.70-1.80 ) Free T3 12/03/2022 [facility] Free T3 3.4 pg/mL [...]
--- OUTSIDE RECORDS SUMMARY | 2025-11-09 11:22 | XMS_ITS | Clinical Summary ---
Author Organization [address] [facility] Address [address] [place] [address] Phone Care Team Providers Care Industrial Relations Counselor Name Role Phone Cricket Nevarez DO Primary Care Provider [phone] Encounters Date Type Department Care Team Description 10/20/2025 10:00 AM EST Lab Draw Station - [address] [address] Encounter for general adult medical examination without abnormal findings; Thyrotoxicosis, unspecified without thyrotoxic crisis or storm; Hyperlipidemia, unspecified; Obstructive sleep apnea (adult) (pediatric) from Last 3 Months Social History Tobacco Use Types Packs/Day Years Used Date Smoking Tobacco: Never Assessed Sex and Gender Information Value Date Recorded Sex Assigned at Male 10/20/2025 10:00 AM EST Legal Sex Male 3:51 AM EST Gender Identity Male 10/20/2025 10:00 AM EST Sexual Orientation Not on file Plan of Treatment Health Maintenance Due Date Last Done Comments Colorectal Cancer Screening: Colonoscopy 1973 DTaP,Tdap,and Td Vaccines (1 - Tdap) 1992 Hepatitis B Vaccines (1 of 3 - 19+ 3-dose series) 1992 HIV Screening 09/21/2022 Social Influencers of Health Screening 09/21/2022 Pneumococcal Vaccine: 50+ Years (1 of 1 - PCV) 2023 Zoster Vaccines (1 of 2) 2023 COVID-19 Vaccine ( - 2024-2 6 season) 2025 Influenza Vaccine (#1) 2025 Depression Screening 10/19/2025 Cholesterol Screening (Lipid Panel) 10/20/2030 10/20/2025, 10/20/2024 RSV Immunization Adult Patients (1 - 1-dose 75+ series) 2048 Hepatitis C Screening Completed 10/20/2025 HIB Vaccines Aged Out No longer eligi ble based on patient's age to complete this topic HPV Vaccines Aged Out No longer eligi ble based on patient's age to complete this topic Hepatitis A Vaccines Aged Out No long er eligible based on patient's age to complete this topic IPV Vaccines Aged Out No longer eligi ble based on patient's age to complete this topic MMR Vaccines Aged Out No longer eligi ble based on patient's age to complete this topic Meningococcal ACWY Vaccine Aged Out N o longer eligible based on patient's age to complete this topic Meningococcal B Vaccine Aged Out No l onger eligible based on patient's age to complete this topic RSV Immunization Patients Under 20 months Aged Out No longer eligible b ased on patient's age to complete this topic Varicella Vaccines Aged Out No longer eligible based on patient's age to complete this topic Procedures Procedure Name Priority Date/Time Associated Diagnosis Comments CBC WITH AUTO DIFFERENTIAL Routine 10/20/2025 10:03 AM EST Obstructive sleep apnea (adult) (pediatric) CBC AND DIFFERENTIAL Routine 10/20/2025 10:03 AM EST Obstructive sleep apnea (adult) (pediatric) COMPREHENSIVE METABOLIC PANEL Routine 10/20/2025 10:03 AM EST Obstructive sleep apnea (adult) (pediatric) HEMOGLOBIN A1C Routine 10/20/2025 10:03 AM EST Hyperlipidemia, unspecified LIPID PANEL WITH REFLEX TO DIRECT LDL Routine 10/20/2025 10:03 AM EST Hyperlipidemia, unspecified PROSTATE SPECIFIC ANTIGEN SCREEN Routine 10/20/2025 10:03 AM EST Encounter for general adult medical examination without abnormal findings THYROID STIMULATING HORMONE WITH REFLEX TO FREE T4 AND FREE T3 Routine 10/20/2025 10:03 AM EST Thyrotoxicosis, unspecified without thyrotoxic crisis or storm HEPATITIS C ANTIBODY Routine 10/20/2025 10:03 AM EST Encounter for general adult medical examination without abnormal findings from Last 3 Months Results * Prostate specific antigen screen (10/20/2025 10:03 AM EST) PSA 0.94 0.00 - 4.00 ng/mL 10/20/2025 11:43 AM EST [facility] Blood Venipuncture / Unknown 10/20/2025 10:03 AM EST 10/20/2025 10:03 AM EST Narrative [facility] - 10/20/2025 11:43 AM EST The Siem[employer] Package [email or web address] IM Chemiluminescent Immunoassay is used. Results obtained with different assay methods or kits cannot be used interchangeably. Results cannot be interpreted as absolute evidence of the presence or absence of malignant disease. Fede [facility] LAB BLOOD ORDERABLES Final Resul t Performing Organization Address [facility]/ZIP Co de Phone Number [facility] [address] [place] [address], [place] [phone] * Hepatitis C antibody (10/20/2025 10:03 AM EST) Pathologist [facility] Hepatitis C Antibody Negative Negative 10/20/2025 12:23 PM EST [facility] Blood Venipuncture / Unknown 10/20/2025 10:03 AM EST 10/20/2025 10:03 AM EST [facility] LAB BLOOD ORDERABLES Final Resul t Performing Organization Address City/[facility]/ZIP Co de Phone Number [facility] [address] [place] [address], [place] [phone] * Thyroid stimulating hormone with reflex to free t4 and free t3 (10/20/2025 10:03 AM EST) Pathologist [facility] TSH 1.34 0.40 - 4.00 mcIU/mL 10/20/2025 11:47 AM EST [facility] Blood Venipuncture / Unknown 10/20/2025 10:03 AM EST 10/20/2025 10:03 AM EST Fede Olvera LAB BLOOD ORDERABLES Final Resul t Performing Organization Address City/[facility]/ZIP Co de Phone Number [facility] [address] [place] [address], [place] [phone] * (ABNORMAL) Lipid panel with reflex to direct LDL (10/20/2025 10:03 AM EST) Cholesterol 174 0 - 200 mg/dL 10/20/2025 11:46 AM [facility] Triglycerides 299(H) 0 - 150 mg/dL 10/20/2025 11:46 AM [facility] HDL 32(L) >=40 mg/dL 10/20/2025 11:46 AM [facility] LDL Calculated 82 0 - 100 mg/dL 10/20/2025 11:46 AM [facility] Comment:Estimated LDL is pavel culated using the Friedewald equation: Total cholesterol - HDL cholesterol - (Triglycerides/5) VLDL Cholesterol Pavel 59.8 mg/dL 10/20/2025 11:46 AM [facility] Non HDL Chol. (LDL+VLDL) 142 <145 mg/dL 10/20/2025 11:46 AM [facility] Chol/HDL Ratio 5.4(H) 0.0 - 4.4 10/20/2025 11:46 AM [facility] Blood Venipuncture / Unknown 10/20/2025 10:03 AM EST 10/20/2025 10:03 AM EST Fede May LAB BLOOD ORDERABLES Final Resul t Performing Organization Address [facility]/ZIP Co de Phone Number [facility] [address] [place] [address], [place] [phone] * (ABNORMAL) CBC auto differential (10/20/2025 10:03 AM EST) [facility] WBC 9.0 4.8 - 10.8 K/mcL LAB HEMETOLOGY METHOD 10/20/2025 11:13 AM [facility] RBC 4.70 4.50 - 5.50 M/mcL LAB HEMETOLOGY METHOD 10/20/2025 11:13 AM [facility] Hemoglobin 14.3 13.5 - 17.5 g/dL LAB HEMETOLOGY METHOD 10/20/2025 11:13 AM [facility] Hematocrit 40.9(L) 42.0 - 54.0 % LAB HEMETOLOGY METHOD 10/20/2025 11:13 AM [facility] MCV 86.7 79.0 - 98.0 FL LAB HEMETOLOGY METHOD 10/20/2025 11:13 AM [facility] MCH 30.3 27.0 - 32.0 pcg LAB HEMETOLOGY METHOD 10/20/2025 11:13 AM [facility] MCHC 35.0 32.0 - 37.0 g/dL LAB HEMETOLOGY METHOD 10/20/2025 11:13 AM [facility] RDW 13.3 11.0 - 15.0 % LAB HEMETOLOGY METHOD 10/20/2025 11:13 AM [facility] Platelets 182 130 - 400 K/[facility] LAB HEMETOLOGY METHOD 10/20/2025 11:13 AM [facility] MPV 10.9 7.0 - 11.0 FL LAB HEMETOLOGY METHOD 10/20/2025 11:13 AM [facility] NRBC 0.0 <1.0 % LAB HEMETOLOGY METHOD 10/20/2025 11:13 AM [facility] NRBC Absolute 0.00 <0.10 K/mcL LAB HEMETOLOGY METHOD 10/20/2025 11:13 AM [facility] Neutrophils Relative 63.1 % LAB HEMETOLOGY METHOD 10/20/2025 11:13 AM [facility] Lymphocytes Relative 25.3 % LAB HEMETOLOGY METHOD 10/20/2025 11:13 AM [facility] Monocytes Relative 8.9 % LAB HEMETOLOGY METHOD 10/20/2025 11:13 AM [facility] Eosinophils Relative 1.1 % LAB HEMETOLOGY METHOD 10/20/2025 11:13 AM [facility] Basophils Relative 0.7 % LAB HEMETOLOGY METHOD 10/20/2025 11:13 AM [facility] Immature Granulocytes Relative 0.9 % LAB HEMETOLOGY METHOD 10/20/2025 11:13 AM [facility] Neutrophils Absolute 5.67 1.50 - 7.00 K/mcL LAB HEMETOLOGY METHOD 10/20/2025 11:13 AM [facility] Lymphocytes Absolute 2.27 1.00 - 5.00 K/mcL LAB HEMETOLOGY METHOD 10/20/2025 11:13 AM [facility] Monocytes Absolute 0.80 0.20 - 1.00 K/mcL LAB HEMETOLOGY METHOD 10/20/2025 11:13 AM [facility] Eosinophils Absolute 0.10 0.00 - 0.50 K/mcL LAB HEMETOLOGY METHOD 10/20/2025 11:13 AM [facility] Basophils Absolute 0.06 0.00 - 0.20 K/mcL LAB HEMETOLOGY METHOD 10/20/2025 11:13 AM [facility] Immature Granulocytes Absolute 0.08(H) 0.00 - 0.03 K/mcL LAB HEMETOLOGY METHOD 10/20/2025 11:13 AM [facility] Blood Venipuncture / Unknown 10/20/2025 10:03 AM EST 10/20/2025 10:03 AM EST Fede Marychuy LAB BLOOD ORDERABLES Final Resul t Performing Organization Address City/[facility]/ZIP Co de Phone Number [facility] [address] [place] [address], [place] [phone] * Hemoglobin A1c (10/20/2025 10:03 AM EST) Pathologist [facility] Hemoglobin A1C 5.4 <6.5 % LAB CHEMISTRY METHOD 10/20/2025 12:55 PM EST [facility] Mean Bld Glu Estim. 108 mg/dL LAB CHEMISTRY METHOD 10/20/2025 12:55 PM [facility] Blood Venipuncture / Unknown 10/20/2025 10:03 AM EST 10/20/2025 10:03 AM EST Fede [facility] LAB BLOOD ORDERABLES Final Resul t Performing Organization Address [facility]/ZIP Co de Phone Number [facility] [address] [place] [address], [place] [phone] * (ABNORMAL) Comprehensive metabolic panel (10/20/2025 10:03 AM EST) [facility] Sodium 141 133 - 145 mmol/L 10/20/2025 11:46 AM [facility] Potassium 3.9 3.5 - 5.5 mmol/L 10/20/2025 11:46 AM [facility] Chloride 104 96 - 110 mmol/L 10/20/2025 11:46 AM [facility] CO2 24 21 - 32 mmol/L 10/20/2025 11:46 AM [facility] Anion Gap 13(H) 3 - 11 10/20/2025 11:46 AM [facility] Glucose 96 70 - 100 mg/dL 10/20/2025 11:46 AM [facility] BUN 14 5 - 25 mg/dL 10/20/2025 11:46 AM [facility] Creatinine 1.27 0.70 - 1.30 mg/dL 10/20/2025 11:46 AM [facility] eGFR 68 >=60 mL/min/1. 73m2 10/20/2025 11:46 AM [facility] Comment:Calculation based on the Chronic Kidney Disease Epidemiology Collaboration (CKD-EPI) equation refit without adjustment for race. BUN/Creatinine Ratio 11.0 10/20/2025 11:46 AM [facility] Calcium 9.0 8.5 - 10.5 mg/dL 10/20/2025 11:46 AM [facility] AST (SGOT) 48(H) 10 - 42 unit/L 10/20/2025 11:46 AM [facility] ALT (SGPT) 85(H) 10 - 60 unit/L 10/20/2025 11:46 AM [facility] Alkaline Phosphatase 95 42 - 121 unit/L 10/20/2025 11:46 AM [facility] Total Protein 7.4 6.0 - 8.0 g/dL 10/20/2025 11:46 AM [facility] Albumin 4.3 3.2 - 5.0 g/dL 10/20/2025 11:46 AM [facility] Total Bilirubin 0.5 0.0 - 1.4 mg/dL 10/20/2025 11:46 AM [facility] Blood Venipuncture / Unknown 10/20/2025 10:03 AM EST 10/20/2025 10:03 AM EST us Fede Olvera LAB BLOOD ORDERABLES Final Resul t [facility] [address] [place] [address], from Last 3 Months Insurance [employer] Care Teams Industrial Relations Counselor Relationship Specialty Start Date End Date Cricket Nevarez DO [address] [place] [phone] PCP - General Internal Medicine 10/20/24
== END 2025-09-19 00:01 ==
LOC: HO.HOSX
PROVIDERS: Visit Provider Physician Assistant
DX: S82.141D Displaced bicondylar fracture of right tibia, subsequent encounter for closed fracture with routine healing (principal); X58.XXXD Exposure to other specified factors, subsequent encounter
CPT/HCPCS: 73562; 99212

== ENCOUNTER 2025-09-19 13:16 | Outpatient (AMB) | payer OTHER, SELFPAY ==
--- NOTE | 2025-09-19 13:26 | A.OFFVIS_ITS ---
Intake Visit Reasons: OV- Rt Tibial Plateau ORIF 05/10/25 w/ Xray Intake Note: Paul is a 49 year old male who presents today for a follow up status post right tibial plateau ORIF done on 05/10/[address] Arevalo. At his last visit he was advised he can weight bear as tolerated. Also, continue working with physical therapy on range of motion unlocking the ACL brace by 10 degrees each week until full range of motion has been achieved. Patient reports Allergies NSAIDS (Non-Steroidal Anti-Inflamma Adverse Reaction (Verified 08/08/25 15:00) one kidney HPI HPI OV- Rt Tibial Plateau ORIF 05/10/25 w/ Xray: Details: Mr. Partida is a 49-year-old male who presents to the office today status post right tibia plateau ORIF performed on 05/10/[address] Arevalo. Patient has been attending physical therapy at [facility] in [place]. He states that he was doing very well and making steady progress up until roughly 1 month ago when his sessions decreased from 3 times a week to 2 times a week. Ever since then, he feels as though he has plateaued. He continues to use the brace and the assistance of a walker. He is unable to put full weight on the right lower extremity due to pain in the knee and ankle. [facility] Medical History Afib SVT (supraventricular tachycardia) Back pain AARTI on CPAP Surgical History History of surgery Status post LASIK surgery of both eyes History of nephrectomy (10/04/15) History of cardiac ablation for atrial fibrillation Social History Household Members: Spouse Housing: House Are you a primary rn coronary care unit to a significant other at home: No Do you presently have visiting nurse or other home services: No Alcohol intake: never Patient Tobacco Use Status: Never used Tobacco service: No Current occupational status: employed 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 construction Review of Systems Const All systems reviewed & are unremarkable except as noted in HPI and below Physical Exam Const General: cooperative, healthy appearing and no acute distress Resp Effort & Inspection: normal respiratory effort and able to speak in complete sentences Extrem Other: Right knee incision site is c/d/i. No surrounding erythema or drainage no signs of infection. ROM 0-80 degrees. full ankle ROM. NVI. Psych Appearance: grossly normal Mental Status: mental status grossly normal Attitude: cooperative Assessment & Plan Assessment & Plan (1) Fracture of right tibial plateau: Code(s): S82.141A - Displaced bicondylar fracture of right tibia, initial encounter for closed fracture Category: Medical Qualifiers: Encounter type: initial encounter Fracture type: closed Qualified Code(s): S82.141A - Displaced bicondylar fracture of right tibia, initial encounter for closed fracture Plan Mr. Partida is a 49-year-old male who presents to the office today status post right tibia plateau ORIF performed on 05/10/[address] Arevalo. Patient has been attending physical therapy at [facility] in [place]. He states that he was doing very well and making steady progress up until roughly 1 month ago when his sessions decreased from 3 times a week to 2 times a week. Ever since then, he feels as though he has plateaued. He continues to use the brace and the assistance of a walker. He is unable to put full weight on the right lower extremity due to pain in the knee and ankle. While in the office today, I have generated a new physical therapy prescription. When the patient with decreased to 3 times a week he felt as though he plateaued with his progress. Therefore, I have recommended to increase the sessions to 3 times a week really concentrating on range of motion and gait training. The goal is to wean him off the walker once safe to do so. As far as his brace, I have recommended that when he is out of his house that he should wear it but while at home he can discontinue and work on gait training and range of motion. He is unable to work at this time. He has been given an out-of-work note until follow up. He will follow up in 5-6 weeks with me with Dr. Arevalo in the office, sooner if needed. X-rays of the right knee which were obtained while in the office today and were reviewed by me, Sonya Garcia PA-C, revealed intact orthopedic hardware with routine healing. Orders: Orders PT Evaluation and Treatment Today S82.141A - Displaced bicondylar fracture of right tibia, initial encounter for closed fracture XR knee RT 3V Today M25.569 - Pain in unspecified knee Coding Level of Care Code Est Pt Level 3 (19935) Diagnoses Closed fracture of right tibial plateau, initial encounter S82.141A Encounter type: initial encounter Fracture type: closed
--- OUTSIDE RECORDS SUMMARY | 2025-09-19 15:15 | XMS_ITS | Continuity of Care Document ---
Author Organization [facility] [address] [place] [address] Phone [phone] Care Team Providers Care Logistics Vice President Name Role Phone Cricket Nevarez M.D. Care Team Information Rece iver [phone] Problems Active Problems Provider Date Hyperlipidemia Jonathan [...] ote TSH With Reflex To FT4 08/28/2023 [facility] TSH With Reflex To FT4 Duplicate Order TSH With Reflex To FT4 12/05/2022 [facility] TSH With Reflex To FT4 <pending> TSH 12/03/2022 [facility] TSH 3.84 uIU/mL (0.4-4.2) Free T4 12/03/2022 [facility] Free T4 0.99 ng/dL (0.70-1.80 ) Free T3 12/03/2022 [facility] Free T3 3.4 pg/mL [...]
== END 2025-09-19 14:06 | disposition home or self-care (01) ==
LOC: HO.HOS 13:17
PROVIDERS: Visit Provider Physician Assistant
DX: S82.141D Displaced bicondylar fracture of right tibia, subsequent encounter for closed fracture with routine healing (principal); Z47.89 Encounter for other orthopedic aftercare
CPT/HCPCS: 99213

== ENCOUNTER → 2025-09-19 13:19 | Outpatient (BNV) | payer OTHER, SELFPAY | PROVIDERS: Visit Provider Radiology Diagnostic Radiology | DX: M85.861 Other specified disorders of bone density and structure, right lower leg (principal) | CPT/HCPCS: 73562 ==